=== PATIENT | female | born 1960 | race Caucasian/White ===

== ENCOUNTER 2018-10-10 09:15 | Inpatient (IN) | payer OTHER ==
[2018-10-10] MEDS ORDERED: fentaNYL 100 MCG/2 ML INJ IVP ONE (09:22)
[2018-10-10] MEDS ORDERED: diphenhydrAMINE 25 MG CAP PO ONE (09:22)
[2018-10-10] MEDS ORDERED: NS 500 ML IV ONE (09:22)
[2018-10-10] MEDS ORDERED: FAMOTIDINE 20 MG TAB PO ONE (09:22)
[2018-10-10] MEDS ORDERED: DIAZEPAM 5 MG TAB PO ONE (09:22)
[2018-10-10] MEDS ORDERED: ASPIRIN EC 325 MG TAB PO ONE (09:22)
[2018-10-10] MEDS ORDERED: BENZOCAINE UNIT DOSE SPRAY HURRICAINE MM ONE (09:22)
[2018-10-10] MEDS ORDERED: MIDAZOLAM 2 MG/2 ML VIAL IVP ONE (09:22)
[2018-10-10] MEDS ORDERED: NS 1,000 ML IV ONE (09:22)
[2018-10-10] MEDS ORDERED: fentaNYL 100 MCG/2 ML INJ ONE (10:17)
[2018-10-10] MEDS ORDERED: LIDOCAINE 1% 300 MG/30 ML SDV ONE (10:17)
[2018-10-10] MEDS ORDERED: MIDAZOLAM 2 MG/2 ML VIAL ONE ×2 (10:17→10:18)
[2018-10-10] MEDS ORDERED: HEPARIN 10,000 UNIT/10 ML MDV (1,000 UNIT/ML) ONE (10:18)
[2018-10-10] MEDS ORDERED: IOPAMIDOL (ISOVUE-370) 150 ML BTL IV ONE (10:18)
[2018-10-10] MEDS ORDERED: VERAPAMIL 5 MG/2 ML VIAL ONE (10:18)
[2018-10-10 10:21] LABS: INR 1.08 (0.83-1.16); PROTIME(PATIENT) 14.2 SEC (12.0-15.0)
[2018-10-10 10:29] LABS: PLATELET COUNT 244 10^3/uL (150-400)
--- NOTE | 2018-10-10 10:30 | PDHPUP ---
History & Physical Update H&P update statement: This history and physical update is based on an assessment of the patient which was completed after admission or registration (within 24 hours), but prior to the surgery/procedure. H&P update: H&P reviewed & patient examined, no change in patient's condition since H&P completed
--- NOTE | 2018-10-10 10:30 | PDPROPOC ---
Sedation Plan of Care Sedation Plan of Care: vital signs stable, mental status noted, patient educated of risks, benefits, alternatives, patient can tolerate sedation ASA Classification: ASA 2 Planned drugs: fentanyl, midazolam Mallampati Score: Class 1 Mallampati Reference Image: Patient passed 3-3-2 rule?: Yes
--- NOTE | 2018-10-10 13:21 | PDDXCAT ---
Diagnostic Cath Note - . Date: 10/10/18 Business Development Coordinator: Chuy Indication: other (Preop mitral valve replacement) - Procedure Access: right wrist Procedure: left heart catheterization, coronary angiography, left ventriculogram - Materials Left Heart Cath size: 5F Left Heart Cath materials: pigtail, other ([place] 4) Right Heart Cath size: 5F Right Heart Cath materials: PWP catheter - Findings-Left Heart Catheterization LM: Unobstructed LAD: Unobstructed LCX: Dominant: Unobstructed RCA: Unobstructed EDP: 10 mm of mercury LVEF: 64 Wall motion: Normal - Findings-Right Heart Catheterization RA: 10 mm of mercury RV: 52/10 PA: 52/30 PAOP: 30: Simultaneous left ventricular end-diastolic pressure wedge gradient of 25 mm of mercury Complications: None Estimated blood loss: <50ml Closure method: TR Band Assessment: Severe mitral stenosis. Angiographically normal coronary arteries. Normal LV systolic function Plan: Surgical evaluation and treatment.
[2018-10-10] MEDS ORDERED: ACETAMINOPHEN 325 MG TAB PO PRN (13:45)
[2018-10-10] MEDS ORDERED: HYDROCODONE/APAP 5/325 TAB PO PRN (13:45)
[2018-10-10] MEDS ORDERED: TEMAZEPAM 15 MG CAP PO PRN (13:46)
--- NOTE | 2018-10-10 13:54 | PDGENHP ---
History and Physical - Chief Complaint severe MS/TR - History of Present Illness 57F last seen in clinic on 06/06/18 for surgical evaluation of severe MS, severe TR, and severe pulmonary hypertension, admitted today in advance of OHS for risk stratification. Pt currently without complaints. She denies weakness, pre- syncope, syncope, CP, palpitations, SOB, PND, orthopnea, or LE edema. Pt with childhood h/o OHS which was possibly a MV repair through a left thoracotomy although she is unsure of the details. History Information - Allergies/Home Medication List Allergies/Adverse Reactions: No Known Allergies Allergy (Verified 10/03/18 10:23) Home Medications: Aspirin [Aspirin 81mg (*)] 81 mg PO DAILY 10/03/18 [Last Taken 09/26/18] Multivitamins [Multivitamin (*)] 1 each PO DAILY 10/03/18 [Last Taken 09/26/18] Pravastatin Sodium 20 mg PO DAILY 10/10/18 [Last Taken 09/26/18] I have personally reviewed and updated: medical history, social history, surgical history - Past Medical History hyperlipidemia - Surgical History Additional surgical history: as per HPI - Family History Positive for: non-pertinent - Social History Smoking Status: Former smoker Review of Systems Review of Systems: ROS: 10pt was reviewed & negative except for what was stated in HPI & below Physical Exam Physical Exam: Constitutional: no apparent distress, appears nourished, not in pain Eyes: anicteric sclera Ears, Nose, Mouth, Throat: hearing normal, no oral mucosal ulcers Cardiovascular: regular rate and rhythym, systolic murmur Respiratory: no respiratory distress, no rales or rhonchi, clear to auscultation Gastrointestinal: soft, non-tender abdomen Skin: warm, normal color, other (well-healed incision left, under breast ) Musculoskeletal: full muscle strength Neurologic: AAOx3 Psychiatric: interacting appropriately, not anxious, not encephalopathic, thought process linear Lab Data & Imaging Review 10/10/18 09:10 10/10/18 09:40 WBC 5.54 10^3/uL (3.80-9.50) 10/10/18 09:10 RBC 4.62 10^6/uL (4.18-5.33) 10/10/18 09:10 Hgb 14.1 g/dL (12.6-16.3) 10/10/18 09:10 Hct 41.3 % (38.0-47.0) 10/10/18 09:10 MCV 89.4 fL (81.5-99.8) 10/10/18 09:10 MCH 30.5 pg (27.9-34.1) 10/10/18 09:10 MCHC 34.1 g/dL (32.4-36.7) 10/10/18 09:10 RDW 12.9 % (11.5-15.2) 10/10/18 09:10 Plt Count 244 10^3/uL (150-400) 10/10/18 09:10 MPV 11.0 fL (8.7-11.7) 10/10/18 09:10 Neut % (Auto) 51.8 % (39.3-74.2) 10/10/18 09:10 Lymph % (Auto) 33.8 % (15.0-45.0) 10/10/18 09:10 [place] % (Auto) 9.7 % (4.5-13.0) 10/10/18 09:10 Eos % (Auto) 3.4 % (0.6-7.6) 10/10/18 09:10 Baso % (Auto) 0.9 % (0.3-1.7) 10/10/18 09:10 Nucleat RBC Rel Count 0.0 % (0.0-0.2) 10/10/18 09:10 Absolute Neuts (auto) 2.87 10^3/uL (1.70-6.50) 10/10/18 09:10 Absolute Lymphs (auto) 1.87 10^3/uL (1.00-3.00) 10/10/18 09:10 Absolute Monos (auto) 0.54 10^3/uL (0.30-0.80) 10/10/18 09:10 Absolute Eos (auto) 0.19 10^3/uL (0.03-0.40) 10/10/18 09:10 Absolute Basos (auto) 0.05 10^3/uL (0.02-0.10) 10/10/18 09:10 Absolute Nucleated RBC 0.00 10^3/uL (0-0.01) 10/10/18 09:10 Immature Gran % 0.4 % (0.0-1.1) 10/10/18 09:10 Immature Gran # 0.02 10^3/uL (0.00-0.10) 10/10/18 09:10 PT 14.2 SEC (12.0-15.0) 10/10/18 09:40 INR 1.08 (0.83-1.16) 10/10/18 09:40 Sodium 140 mEq/L (135-145) 10/10/18 09:40 Potassium 4.8 mEq/L (3.5-5.2) 10/10/18 09:40 Chloride 111 mEq/L (97-110) H 10/10/18 09:40 Carbon Dioxide 21 mEq/l (22-31) L 10/10/18 09:40 Anion Gap 8 mEq/L (6-14) 10/10/18 09:40 BUN 11 mg/dL (7-23) 10/10/18 09:40 Creatinine 0.6 mg/dL (0.6-1.0) 10/10/18 09:40 Estimated GFR > 60 10/10/18 09:40 Glucose 105 mg/dL (70-100) H 10/10/18 09:40 Hemoglobin A1c 5.8 % (4.0-6.0) 10/10/18 09:40 Estim Average Glucose 120 mg/dL (68-126) 10/10/18 09:40 Calcium 9.7 mg/dL (8.5-10.4) 10/10/18 09:40 Magnesium 2.2 mg/dL (1.6-2.3) 10/10/18 09:40 Triglycerides 155 mg/dL (35-135) H 10/10/18 09:40 Cholesterol 280 mg/dL (140-220) H 10/10/18 09:40 Cholesterol Risk Factr 1.4 (0.2-1.0) H 10/10/18 09:40 LDL Cholesterol, Calc 194 mg/dL (80-100) H 10/10/18 09:40 LDL Risk Factor 1.2 (0.2-1.0) H 10/10/18 09:40 VLDL Cholesterol 31 mg/dL (8-25) H 10/10/18 09:40 Non-HDL Cholesterol 225 mg/dL (90-129) H 10/10/18 09:40 HDL Cholesterol 55 mg/dL (40-85) 10/10/18 09:40 LDL/HDL Ratio 3.53 RATIO (1.00-3.22) H 10/10/18 09:40 Cholesterol/HDL Ratio 5.09 RATIO (1.00-4.44) H 10/10/18 09:40 Patient ABO/Rh O POSITIVE 10/10/18 09:40 Antibody Screen NEGATIVE 10/10/18 09:40 Imaging Review: CXR, carotids, C pending Assessment & Plan Assessment: 1. Severe MS 2. Severe TR 3. r/o CAD Plan: 1. Mitral valve repair vs replacement 2. Tricuspid valve repair vs replacement 3. Await [facility] results
--- NOTE | 2018-10-10 14:42 | PDMN ---
Medical Necessity Medical necessity: Pt meets inpt criteria per MD order and [facility] S-290, Cardiac Valve Replacement or Repair, 5 days, IP only list. 57 y/o w/severe MS, TR, and severe pulm HTN admitted for LHC/risk stratification prior to OHS: mitral valve repair vs replacement and tricuspid valve repair vs replacement.
[2018-10-10] MEDS ORDERED: CHLORHEXIDINE GLUC HIBICLENS 118 ML BTL TP SCH (21:00)
[2018-10-11] MEDS ORDERED: niCARdipine/NACL 200 ML IV ONE (06:00)
[2018-10-11] MEDS ORDERED: AMINOCAPROIC ACID 5 GM/20 ML VIAL IV ONE (06:00)
[2018-10-11] MEDS ORDERED: CITRATE DEXTROSE SOLN 500 ML BAG MISC ONE (06:00)
[2018-10-11] MEDS ORDERED: NOREPINEPHRINE BITARTRATE 16 MG in NS 250 ML IV ONE (06:00)
[2018-10-11] MEDS ORDERED: INSULIN REGULAR HUMAN 100 UNIT in NS 100 ML IV ONE (06:00)
[2018-10-11] MEDS ORDERED: MUPIROCIN 2% 22 GM OINT NS ONE (06:00)
[2018-10-11] MEDS ORDERED: MANNITOL 25% 12.5 GM/50 ML VIAL IVP ONE (06:00)
[2018-10-11] MEDS ORDERED: ceFAZolin 2 GM/DEXTROSE 100 ML IV ONE (06:00)
[2018-10-11] MEDS ORDERED: CARDIOPLEGIC SOLUTION 1,052.8 ML PF ONE (06:00)
[2018-10-11] MEDS ORDERED: PHENYLEPHRINE HCL 50 MG in NS 250 ML IV ONE (06:00)
[2018-10-11] MEDS ORDERED: PROTAMINE SULFATE 50 MG/5 ML VIAL IVP ONE (06:25)
[2018-10-11] MEDS ORDERED: MILRINONE/DEXTROSE/100 ML BAG IV ONE (06:25)
[2018-10-11] MEDS ORDERED: CALCIUM CHLORIDE 1 GM/10 ML INJ ONE ×3 (06:25→06:28)
[2018-10-11] MEDS ORDERED: AMIODARONE HCL 150 MG/3 ML VIAL ONE ×2 (06:26→06:29)
[2018-10-11] MEDS ORDERED: DOPamine/DEXTROSE 400 MG/250 ML BAG IV ONE ×2 (06:26→19:14)
[2018-10-11] MEDS ORDERED: HEPARIN 10,000 UNIT/10 ML MDV (1,000 UNIT/ML) ONE ×2 (06:26→06:28)
[2018-10-11] MEDS ORDERED: NA BICARBONATE 50 MEQ/50 ML VIAL ONE (06:26)
[2018-10-11] MEDS ORDERED: niCARdipine/NACL/200 ML BAG IV ONE (06:26)
[2018-10-11] MEDS ORDERED: ceFAZolin 1 GM VIAL ONE (06:27)
[2018-10-11] MEDS ORDERED: ADENOSINE 6 MG/2 ML VIAL ONE (06:27)
[2018-10-11] MEDS ORDERED: NITROGLYCERIN/D5W 50 MG/250 ML BOTTLE IV ONE (06:27)
[2018-10-11] MEDS ORDERED: SODIUM BICARBONATE 50 MEQ/50 ML SYR ONE (06:27)
[2018-10-11] MEDS ORDERED: CITRATE DEXTROSE SOLN 500 ML BAG ONE (06:28)
[2018-10-11] MEDS ORDERED: ALBUMIN 5% 250 ML BOTTLE IV ONE ×2 (06:28→13:45)
[2018-10-11] MEDS ORDERED: LIDOCAINE 2% 100 MG/5 ML SYR ONE ×2 (06:28→10:17)
[2018-10-11] MEDS ORDERED: MAGNESIUM SULFATE 1 GM/2 ML VIAL ONE (06:29)
[2018-10-11] MEDS ORDERED: methylPREDNISolone SOD SUCC 1 GM/8 ML VIAL ONE (06:29)
[2018-10-11] MEDS ORDERED: LR 1,000 ML IV ONE (07:37)
[2018-10-11] MEDS ORDERED: MIDAZOLAM 2 MG/2 ML VIAL IVP ONE (09:54)
--- NOTE | 2018-10-11 09:58 | PDANEPAE ---
ANE History of Present Illness MVReplacement and TVRepair for severe MS ANE Past Medical History - Cardiovascular History Hx Hypertension: No Hx Arrhythmias: No Hx Chest Pain: No Hx Coronary Artery / Peripheral Vascular Disease: No Hx CHF / Valvular Disease: Yes Hx Palpitations: No Cardiovascular History Comment: severe MS and severe TR - Pulmonary History Hx COPD: No Hx Asthma/Reactive Airway Disease: No Hx Recent Upper Respiratory Infection: No Hx Oxygen in Use at Home: No Hx Sleep Apnea: No Sleep Apnea Screening Result - Last Documented: Negative - Neurologic History Hx Cerebrovascular Accident: No Hx Seizures: No Hx Dementia: No - Endocrine History Hx Diabetes: No - Renal History Hx Renal Disorders: No - Liver History Hx Hepatic Disorders: No - Neurological & Psychiatric Hx Hx Neurological and Psychiatric Disorders: No - Cancer History Hx Cancer: No - Congenital Disorder History Hx Congenital Disorders: No - GI History Hx Gastrointestinal Disorders: No - Other Health History Other Health History: dental implants - Chronic Pain History Chronic Pain: No - Surgical History Prior Surgeries: none ANE Review of Systems Review of Systems: - Exercise capacity Exercise capacity: >=4 METS ANE Patient History - Allergies Allergies/Adverse Reactions: No Known Allergies Allergy (Verified 10/03/18 10:23) - Home Medications Home medications: home medication list seen and reviewed Home Medications: Aspirin [Aspirin 81mg (*)] 81 mg PO DAILY 10/03/18 [Last Taken 09/26/18] Multivitamins [Multivitamin (*)] 1 each PO DAILY 10/03/18 [Last Taken 09/26/18] Pravastatin Sodium 20 mg PO DAILY 10/10/18 [Last Taken 09/26/18] - NPO status NPO Status: no food or drink >8 hours NPO Since - Liquids (Date): 10/10/18 NPO Since - Liquids (Time): 23:59 NPO Since - Solids (Date): 10/10/18 NPO Since - Solids (Time): 23:59 - Anes Hx Anes Hx: no prior problems - Smoking Hx Smoking Status: Former smoker - Alcohol Use Alcohol Use: None - Family Anes Hx Family Anes Hx: none Family Hx Anesthesia Complications: none ANE Labs/Vital Signs - Labs Result Diagrams: 10/10/18 09:10 10/10/18 09:40 - Vital Signs Blood Pressure: 116/63 Heart Rate: 62 Respiratory Rate: 10 O2 Sat (%): 98 Height: 154.94 cm Weight: 61.235 kg ANE Physical Exam - Airway Mallampati Score: Class 2 Mouth exam: poor dentition - Pulmonary Pulmonary: no respiratory distress - Cardiovascular Cardiovascular: regular rate and rhythym - ASA Status ASA Status: II ANE Anesthesia Plan Anesthesia Plan: general endotracheal anesthesia Lines/Monitors: arterial line, central line, MAYRA
[2018-10-11] MEDS ORDERED: DEXMEDETOMIDINE HCL 400 MCG in NS 100 ML IV SCH (10:00)
[2018-10-11] MEDS ORDERED: fentaNYL 250 MCG/5 ML INJ ONE (10:13)
[2018-10-11] MEDS ORDERED: PROPOFOL/EMULSION 500 MG/50 ML BOTTLE IV ONE (10:13)
[2018-10-11] MEDS ORDERED: REMIFENTANIL HCL 1 MG VIAL ONE (10:13)
[2018-10-11] MEDS ORDERED: MIDAZOLAM 2 MG/2 ML VIAL ONE (10:13)
[2018-10-11] MEDS ORDERED: ROCURONIUM 100 MG/10 ML VIAL ONE (10:16)
[2018-10-11] MEDS ORDERED: ONDANSETRON 4 MG/2 ML VIAL ONE (10:16)
[2018-10-11] MEDS ORDERED: DEXAMETHASONE 4 MG/ML VIAL ONE ×2 (10:16)
[2018-10-11] MEDS ORDERED: PHENYLEPHRINE HCL 100 MCG/ML SYR ONE (10:35)
--- NOTE | 2018-10-11 11:17 | CPEKG ---
Test Reason : OPEN Blood Pressure : / mmHG Vent. Rate : 058 BPM Atrial Rate : 057 BPM P-R Int : 164 ms QRS Dur : 085 ms QT Int : 428 ms P-R-T Axes : 017 070 020 degrees QTc Int : 421 ms Sinus rhythm Atrial premature complex Low voltage, precordial leads Confirmed by Papi Schmidt ([id number]) on 10/11/2018 11:16:55 AM Referred By: Confirmed By:Papi Schmidt
[2018-10-11] MEDS ORDERED: MINERAL OIL 10 ML VIAL ONE (13:33)
[2018-10-11] MEDS ORDERED: SUGAMMADEX SODIUM 200 MG/2 ML VIAL IVP ONE (13:34)
[2018-10-11] MEDS ORDERED: BISACODYL 10 MG SUPP PR PRN (14:00)
[2018-10-11] MEDS ORDERED: SODIUM CL NASAL 45 ML BTL EACHNARE PRN (14:00)
[2018-10-11] MEDS ORDERED: ONDANSETRON DISINTEGRATING 4 MG TAB PO PRN (14:00)
[2018-10-11] MEDS ORDERED: MAGNESIUM HYDROXIDE 30 ML UDCUP PO PRN (14:00)
[2018-10-11] MEDS ORDERED: POLYETHYLENE GLYCOL 3350 17 GM PKT PO PRN (14:00)
[2018-10-11] MEDS ORDERED: CEPACOL LOZENGE PO PRN (14:00)
[2018-10-11] MEDS ORDERED: D50W 25 GM/50 ML SYR IVP PRN (14:00)
[2018-10-11] MEDS ORDERED: ACETAMINOPHEN 650 MG SUPP PR PRN (14:00)
[2018-10-11] MEDS ORDERED: LACTULOSE 20 GM/30 ML UDCUP PO PRN (14:00)
[2018-10-11] MEDS ORDERED: niCARdipine/NACL 200 ML IV SCH (14:00)
[2018-10-11] MEDS ORDERED: MEPERIDINE 25 MG/0.5 ML AMP IVP PRN (14:00)
[2018-10-11] MEDS ORDERED: PANTOPRAZOLE SODIUM 40 MG VIAL IVP ONE (14:00)
[2018-10-11] MEDS: KETOROLAC 15 MG/1 ML SDV IVP PRN ×2 (14:35→19:25)
--- NOTE | 2018-10-11 14:48 | ASMTCASEMG ---
Living Arrangements What is your living Answers: With Spouse arrangement? Who do you live with? Type Of Residence What kind of residence do Answers: House you live in? Discharge Plan Comments Coordination Status Comments Notes: Patient is a 57yo female who was admitted for mitral valve repair and tricuspid valve repair. PT/OT/Cardiac rehab have been ordered for the patient. Patient lives in [place]. D/C plan TBD. CM will follow. Date Signed: 10/11/2018 02:47 PM Electronically Signed By:Fiorella Worley LCSW
[2018-10-11] MEDS: INSULIN REGULAR HUMAN 100 UNIT in NS 100 ML IV SCH ×2 (14:58→15:34)
[2018-10-11] MEDS: NS 1,000 ML IV SCH (14:59)
[2018-10-11] MEDS: POTASSIUM Cl (KCl) 50 ML IV PRN ×2 (16:49→17:21)
[2018-10-11] MEDS: ALBUMIN 5% 250 ML IV PRN ×2 (17:01→17:40)
[2018-10-11] MEDS: ceFAZolin 2 GM/DEXTROSE 100 ML IV SCH (17:51)
[2018-10-11] MEDS: HYDROCODONE/APAP 5/325 TAB PO PRN (18:11)
[2018-10-11] MEDS: ONDANSETRON 4 MG/2 ML VIAL IVP PRN (19:25)
[2018-10-11] MEDS: fentaNYL 100 MCG/2 ML INJ IVP PRN ×2 (21:05→22:23)
[2018-10-11] MEDS: MUPIROCIN 2% 22 GM OINT NS SCH (21:10)
[2018-10-11] MEDS: SENNOSIDES/DOCUSATE SODIUM TAB PO SCH (21:11)
--- NOTE | 2018-10-11 21:25 | GOP ---
DATE OF OPERATION: 10/10/2018 SURGEON: Azam Us DO DEPUTY DIRECTOR OF FINANCE: Jacky Shin PA-C ANESTHESIOLOGIST: Frank Corbett MD. PREOPERATIVE DIAGNOSIS: 1. Severe mitral stenosis stent, status post previous open mitral commissurotomy. 2. Moderate mitral insufficiency with rheumatic heart disease. 3. Severe tricuspid insufficiency. POSTOPERATIVE DIAGNOSIS: 1. Severe mitral stenosis stent, status post previous open mitral commissurotomy. 2. Moderate mitral insufficiency with rheumatic heart disease. 3. Severe tricuspid insufficiency. PROCEDURE PERFORMED: 1. Reoperation mitral valve replacement with a #27 Magna bioprosthesis. 2. Tricuspid valve annuloplasty with a #26 ring. FINDINGS: Patient had a critical mitral stenosis, was referred for surgical intervention. DESCRIPTION OF PROCEDURE: She was consented, brought to the operating room, intubated. Monitoring li nguyen were placed. She was prepped and draped in sterile classical manner. Sternotomy was performed. Ma rsupialization of the right side of the heart was performed. She had dense adhesions from previous re operation. She was then heparinized, cannulated with bicaval cannulas. Bypass was begun. A cardiopleg ic arrest was obtained with antegrade cardioplegia utilizing [place] solution per protocol and topic al hypothermia, as well as systemic cooling. The left atrium was opened. It became evident that the left atrial appendage had been excised from th e previous operation and was non-existent. We then inspected the valve. It was a classic [place] mi tral valve from rheumatic heart disease. The anterior leaflet was removed and from the tara llary muscle heads. The posterior leaflet was left intact. She was sized for a 27 Magna valve, which was sutured in place with interrupted 2-0 Tycron pledgeted mattress sutures with Cor-knots securing. We then closed the left atrium in standard fashion. A vent was placed into the ventricle for air krishna za. Left atrium was closed. We then opened the right atrium to the right atrium. A retractor was placed. The valve was thickened and somewhat retracted and quite small. Annuloplasty sutures were placed. A 26 ring was secured. With distention of the ventricle, there was no regurgitation. The right atrium was then closed in standar d fashion. The cross-clamp was removed with suction on the ascending aortic vent and LV sump. No atte mpt to lift the heart for de-airing from the apex was performed due to adhesions and mitral valve rep lacement. When no further air was identified, she was weaned from bypass. Mitral valve function appea red to be well preserved, as well as biventricular function. Heparin was reversed with protamine. Cannula was removed and oversewn. Four pacing wires, 1 right ple ural and 1 mediastinal drain were placed. The thymic fat and pericardium were closed. Chest was close d in standard fashion. Patient was returned to ICU in stable condition. /[id number]/MODL
[2018-10-11] MEDS: METOCLOPRAMIDE 10 MG/2 ML VIAL IVP PRN (23:07)
[2018-10-12] MEDS: HYDROCODONE/APAP 5/325 TAB PO PRN ×4 (00:13→22:29)
[2018-10-12] MEDS: fentaNYL 100 MCG/2 ML INJ IVP PRN (00:15)
[2018-10-12] MEDS: KETOROLAC 15 MG/1 ML SDV IVP PRN ×3 (01:00→18:26)
[2018-10-12] MEDS: ceFAZolin 2 GM/DEXTROSE 100 ML IV SCH ×3 (02:04→18:22)
[2018-10-12 05:28] LABS: PLATELET COUNT 126 10^3/uL (150-400)
[2018-10-12] MEDS: HEPARIN 5,000 UNIT/0.5 ML INJ SC SCH ×3 (06:43→22:29)
[2018-10-12] MEDS: ONDANSETRON 4 MG/2 ML VIAL IVP PRN ×3 (07:21→19:06)
--- NOTE | 2018-10-12 07:36 | SOAPPROG ---
SORITA Progress Note Assessment/Plan: POD #1: Reoperation MV replacement with #27 Magna bioprosthesis, TV annuloplasty with #26 MC3 ring Severe MS. moderate MR, and severe TR secondary to rheumatic heart disease with h/o MV commissurotomy via left thoracotomy in early 20s s/p MV replacement and TV repair - AL/FC out, CTs to bulb suction - Coumadin for thromboprophylaxis, INR goal 2-3, duration 3 months with adjunctive baby ASA - BB for AF prophylaxis when appropriate - Possible transfer to PCU later today Acute post-op blood loss anemia - Stable without the need for blood transfusions Post-op JR in 40s - Continue a-pacing for optimized HD DVT prophylaxis - SCDs, heparin SQ Subjective: Pain well-controlled. Denies SOB. Objective: Vital Signs Temp Pulse Resp BP Pulse Ox 36.5 C 80 20 121/53 H 96 10/11/18 20:00 10/12/18 07:00 10/12/18 07:00 10/12/18 07:00 10/12/18 07:00 Laboratory Results 10/12/18 05:00 10/12/18 05:00 10/11/18 10/12/18 10/13/18 05:59 05:59 05:59 Intake Total 1490 1686 Output Total 450 2770 95 Balance 1040 -1084 -95 PT 14.2 SEC (12.0-15.0) 10/10/18 09:40 INR 1.08 (0.83-1.16) 10/10/18 09:40 Physical Exam - Physical Exam General Appearance: WD/WN, alert, no apparent distress EENT: No scleral icterus (R), No scleral icterus (L) Neck: normal inspection Respiratory: No respiratory distress Cardiac/Chest: other (JR) Abdomen: non-tender, soft, No distended Skin: normal color, warm/dry Extremities: other (hand edema ), No pedal edema Neuro/Psych: no motor/sensory deficits, alert, normal mood/affect, oriented x 3 ICD10 Worksheet Patient Problems: Problems Problem Status Onset Acute blood loss anemia Acute H/O heart surgery Acute Mitral stenosis Acute 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
[2018-10-12] MEDS: PANTOPRAZOLE SODIUM 40 MG TAB PO SCH (08:59)
[2018-10-12] MEDS: ASPIRIN 81 MG CHEWABLE TAB PO SCH (08:59)
[2018-10-12] MEDS: SENNOSIDES/DOCUSATE SODIUM TAB PO SCH ×2 (08:59→21:38)
[2018-10-12] MEDS: MUPIROCIN 2% 22 GM OINT NS SCH ×2 (09:00→21:37)
[2018-10-12] MEDS: METOCLOPRAMIDE 10 MG/2 ML VIAL IVP PRN ×2 (09:26→19:06)
[2018-10-12] MEDS: NS 1,000 ML IV SCH (21:29)
[2018-10-13] MEDS: ceFAZolin 2 GM/DEXTROSE 100 ML IV SCH (02:00)
[2018-10-13 04:52] LABS: INR 1.22 (0.83-1.16); PROTIME(PATIENT) 15.6 SEC (12.0-15.0)
[2018-10-13] MEDS: HYDROCODONE/APAP 5/325 TAB PO PRN (05:39)
[2018-10-13] MEDS: HEPARIN 5,000 UNIT/0.5 ML INJ SC SCH ×3 (06:19→23:06)
--- NOTE | 2018-10-13 07:48 | SOAPPROG ---
SOAP Progress Note Assessment/Plan: Assessment: POD#2 Redo MVR#27 Magna bioprosthesis, TVA#26 MC3 ring RHD with recurrent severe MS s/p remote commissurotomy - Valve replaced with a bioprosthesis. Postop course notable for sinus node dysfx and robust early postop autodiuresis necessitating IVF. Cr remains stable. Antithrombotic prophylaxis with Coumadin, target INR 2-3, duration 3 months. Adjunctive baby ASA until INR stable in therapeutic range. AF prophylaxis with BB, as allowed by HR/rhythm. Secondary TR - Management as per MV. Post-op junctional rhythm - Rates in the 40s early postop and Apaced for optimized hemodynamics. Improved HRs yest with intermittent recovery of sinus fx and stable SBPs. No backup pacing triggered. Bursts of AF noted this am. Consider amio if inc frequency. Acute expected blood loss anemia - Stable. No blood transfusions needed. VTE prophylaxis with SCDs, coumadin and SQ hep until INR > 1.8. Postoperative nausea - Assoc with narc analgesia. Transition to multimodal therapy in progress. IVF prn poor oral intake. Plan: Remove ant mediastinal drain. Keep pacer backup capacity. Optimize analgesia. Mobilize. Start coumadin. 2.5 mg today. Tx to PCU. 10/13/18 07:40 Subjective: Tube pain. Sensitive to narcs and couple episodes of emesis. No sustained nausea. Abd soft, NT. Objective: Vital Signs Temp Pulse Resp BP Pulse Ox 36.9 C 52 L 16 136/67 H 99 10/12/18 08:00 10/13/18 06:00 10/13/18 06:00 10/13/18 06:00 10/13/18 06:00 Laboratory Results 10/13/18 04:30 10/13/18 04:30 10/12/18 10/13/18 10/14/18 05:59 05:59 05:59 Intake Total 1686 1881 Output Total 2770 740 Balance -1084 1141 PT 15.6 SEC (12.0-15.0) H 10/13/18 04:30 INR 1.22 (0.83-1.16) H 10/13/18 04:30 HR 50s overnoc, junct/SB. Bursts of AF this am. SBPs > 120 with normalizing fluid balance and stable Cr. Borderline suppl O2 req. CXR-> hypovent, bibasilar atelectasis, min pulm vasc congestion, no undrained effusions. CTOP approaching removal criteria. Physical Exam - Physical Exam General Appearance: alert, no apparent distress Respiratory: decreased breath sounds (bases), other (blakes x 2 to bulb suction , serosang drainage. Ant med drain removed without incident.) Cardiac/Chest: regular rate, rhythm, other (Sternotomy CDI. A&V wires intact.) Abdomen: normal bowel sounds, non-tender, soft Skin: warm/dry Extremities: swelling (trace) ICD10 Worksheet Patient Problems: Problems Problem Status Onset Acute blood loss anemia Acute H/O heart surgery Acute Mitral stenosis Acute 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
[2018-10-13] MEDS: SENNOSIDES/DOCUSATE SODIUM TAB PO SCH ×2 (08:41→23:05)
[2018-10-13] MEDS: PANTOPRAZOLE SODIUM 40 MG TAB PO SCH (08:41)
[2018-10-13] MEDS: ASPIRIN 81 MG CHEWABLE TAB PO SCH (08:41)
[2018-10-13] MEDS: KETOROLAC 15 MG/1 ML SDV IVP PRN (08:49)
[2018-10-13] MEDS: MUPIROCIN 2% 22 GM OINT NS SCH (09:00)
[2018-10-13] MEDS ORDERED: traMADol 50 MG TAB PO PRN (10:00)
[2018-10-13] MEDS: ACETAMINOPHEN 325 MG TAB PO SCH ×3 (13:02→23:04)
[2018-10-13] MEDS: oxyCODONE IR 5 MG TAB PO PRN ×2 (14:32→23:04)
[2018-10-13] MEDS ORDERED: WARFARIN SODIUM 2.5 MG TAB PO ONE (16:00)
[2018-10-13] MEDS: KETOROLAC 15 MG/1 ML SDV IVP SCH ×3 (16:59→23:43)
[2018-10-14] MEDS: ACETAMINOPHEN 325 MG TAB PO SCH ×4 (05:04→23:29)
[2018-10-14] MEDS: KETOROLAC 15 MG/1 ML SDV IVP SCH ×4 (05:05→23:27)
[2018-10-14] MEDS: oxyCODONE IR 5 MG TAB PO PRN ×3 (05:05→23:28)
[2018-10-14] MEDS: HEPARIN 5,000 UNIT/0.5 ML INJ SC SCH ×3 (05:06→23:27)
[2018-10-14 05:21] LABS: INR 1.32 (0.83-1.16); PROTIME(PATIENT) 16.6 SEC (12.0-15.0)
--- NOTE | 2018-10-14 09:04 | SOAPPROG ---
SOAP Progress Note Assessment/Plan: Assessment: POD#3 Redo MVR#27 Magna bioprosthesis, TVA#26 MC3 ring RHD with recurrent severe MS s/p remote commissurotomy - Valve replaced with a bioprosthesis. Postop course notable for sinus node dysfx and robust early postop autodiuresis necessitating IVF. Cr remains stable. Antithrombotic prophylaxis with Coumadin, target INR 2-3, duration 3 months. Adjunctive baby ASA until INR stable in therapeutic range. AF prophylaxis with BB, as allowed by HR/rhythm. Secondary TR - Management as per MV. Post-op junctional rhythm - Rates in the 40s early postop and Apaced for optimized hemodynamics. Stable SBPs. No backup pacing triggered. BB held. HR elevated to 60's with activity. Acute expected blood loss anemia - Stable. No blood transfusions needed. VTE prophylaxis with SCDs, coumadin and SQ hep until INR > 1.8. INR 1.32 from 1.22 yesterday. Postoperative nausea - Assoc with narc analgesia. Transition to multimodal therapy in progress. IVF prn poor oral intake. Plan: Keep right pleural tube in given output, likely out tomorrow Keep pacer backup VVI 40, wires in place Coumadin 2.5 mg today, daily INRs Home pravastatin ordered for tomorrow TTEcho Tuesday Subjective: No complaints Objective: Vital Signs Temp Pulse Resp BP Pulse Ox 36.8 C 49 L 16 114/82 H 96 10/14/18 07:44 10/14/18 07:44 10/14/18 07:44 10/14/18 07:44 10/14/18 07:44 Laboratory Results 10/13/18 04:30 10/14/18 04:55 10/13/18 10/14/18 10/15/18 05:59 05:59 05:59 Intake Total 1881 933 375 Output Total 740 1250 500 Balance 1141 -317 -125 PT 16.6 SEC (12.0-15.0) H 10/14/18 04:55 INR 1.32 (0.83-1.16) H 10/14/18 04:55 General: NAD, NCAT HEENT: CVL IJ, MMM Respiratory: nasal cannula oxygen at 1 L, no wheezes, crackles Cardiac: JR 40-50's, no m/r/g, no edema GI: soft, nt, nd Extremities: warm Incisions: sternum - CDI Chest tubes: 140/60/100 ICD10 Worksheet Patient Problems: Problems Problem Status Onset Acute blood loss anemia Acute H/O heart surgery Acute Mitral stenosis Acute 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
[2018-10-14] MEDS: SENNOSIDES/DOCUSATE SODIUM TAB PO SCH ×2 (11:06→21:40)
[2018-10-14] MEDS: ASPIRIN 81 MG CHEWABLE TAB PO SCH (11:06)
[2018-10-14] MEDS: PANTOPRAZOLE SODIUM 40 MG TAB PO SCH (11:06)
[2018-10-14] MEDS ORDERED: WARFARIN SODIUM 2.5 MG TAB PO ONE (16:00)
--- NOTE | 2018-10-14 17:57 | ASMTCMCOM ---
CM Note CM Note Notes: Reviewed chart regarding discharge plan of care, pt's progress. Pt is s/p an MVR, tricuspid valve repair. PT recommends home with HHC and a four wheel walker. OT cleared pt for discharge. Pt to follow up with cardiac rehab as an outpt. No HHC referrals sent per Abeba's preference. Pt is and lives with his spouse. Anticipate pt will likely discharge home independently with family support and outpt rehab, when medically stable. CM will continue to follow. Discharge Plan: Home independently with family support and cardiac rehab Date Signed: 10/14/2018 05:56 PM Electronically Signed By:Janette Jeter RN
[2018-10-15 05:48] LABS: INR 2.11 (0.83-1.16); PROTIME(PATIENT) 23.7 SEC (12.0-15.0)
[2018-10-15] MEDS: KETOROLAC 15 MG/1 ML SDV IVP SCH ×2 (05:59→12:38)
[2018-10-15] MEDS: HEPARIN 5,000 UNIT/0.5 ML INJ SC SCH (05:59)
[2018-10-15] MEDS: ACETAMINOPHEN 325 MG TAB PO SCH ×3 (09:14→16:56)
[2018-10-15] MEDS: MULTIVITAMINS 1 EACH TAB PO SCH (09:15)
[2018-10-15] MEDS: PANTOPRAZOLE SODIUM 40 MG TAB PO SCH (09:15)
[2018-10-15] MEDS: ASPIRIN 81 MG CHEWABLE TAB PO SCH (09:15)
[2018-10-15] MEDS: SENNOSIDES/DOCUSATE SODIUM TAB PO SCH ×2 (09:15→21:58)
--- NOTE | 2018-10-15 09:41 | SOAPPROG ---
SOAP Progress Note Assessment/Plan: Assessment: POD#4 Redo MVR#27 Magna bioprosthesis, TVA#26 MC3 ring RHD with recurrent severe MS s/p remote commissurotomy - Valve replaced with a bioprosthesis. Postop course notable for sinus node dysfx and robust early postop autodiuresis necessitating IVF. Cr remains stable. Antithrombotic prophylaxis with Coumadin, target INR 2-3, duration 3 months, currently therapeutic at 2.11. Unable to start BB for AF prophylaxis given patient's JR. Secondary TR - Management as per MV. Post-op junctional rhythm - Rates in the 40s early postop and Apaced for optimized hemodynamics. Stable SBPs. No backup pacing triggered. BB held. HR elevated to 60's with activity. Acute expected blood loss anemia - Stable. No blood transfusions needed. VTE prophylaxis with SCDs, coumadin. Postoperative nausea - Assoc with narc analgesia. Plan: Right pleural tube continues to drain, likely out tomorrow Cut TCPW today Stop SQ heparin Coumadin 2 mg today, daily INRs TTEcho Tuesday Anticipate home tomorrow without services Subjective: No complaints. Objective: Vital Signs Temp Pulse Resp BP Pulse Ox 37.1 C 52 L 16 97/48 L 90 L 10/15/18 07:31 10/15/18 07:31 10/15/18 07:31 10/15/18 07:31 10/15/18 07:31 Laboratory Results 10/13/18 04:30 10/14/18 04:55 10/14/18 10/15/18 10/16/18 05:59 05:59 05:59 Intake Total 933 615 Output Total 1250 1260 80 Balance -317 -645 -80 PT 23.7 SEC (12.0-15.0) H 10/15/18 05:25 INR 2.11 (0.83-1.16) H 10/15/18 05:25 General: NAD, NCAT HEENT: CVL IJ, MMM Respiratory: 90% RA, no wheezes, crackles Cardiac: JR 40-50's, no m/r/g, no edema GI: soft, nt, nd Extremities: warm Incisions: sternum - CDI Chest tubes: 200 cc overnight, 80 cc this AM ICD10 Worksheet Patient Problems: Problems Problem Status Onset Acute blood loss anemia Acute H/O heart surgery Acute Mitral stenosis Acute 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
[2018-10-15] MEDS ORDERED: WARFARIN SODIUM 2 MG TAB PO ONE (16:00)
[2018-10-15] MEDS: oxyCODONE IR 5 MG TAB PO PRN (21:57)
[2018-10-16] MEDS: ACETAMINOPHEN 325 MG TAB PO SCH ×3 (00:41→12:18)
[2018-10-16] MEDS: ASPIRIN 81 MG CHEWABLE TAB PO SCH (07:45)
[2018-10-16] MEDS: MULTIVITAMINS 1 EACH TAB PO SCH (07:46)
[2018-10-16] MEDS: SENNOSIDES/DOCUSATE SODIUM TAB PO SCH (07:46)
[2018-10-16] MEDS: PANTOPRAZOLE SODIUM 40 MG TAB PO SCH (07:47)
[2018-10-16] MEDS: oxyCODONE IR 5 MG TAB PO PRN (08:01)
--- NOTE | 2018-10-16 08:05 | SOAPPROG ---
SOAP Progress Note Assessment/Plan: Assessment: POD#5 Redo MVR#27 Magna bioprosthesis, TVA#26 MC3 ring RHD with recurrent severe MS s/p remote commissurotomy - Valve replaced with a bioprosthesis. Postop course notable for sinus node dysfx and robust early postop autodiuresis necessitating IVF. Cr remains stable. Antithrombotic prophylaxis with Coumadin, target INR 2-3, duration 3 months, currently therapeutic at 2.11 yesterday. INR pending for today. Unable to start BB for AF prophylaxis given patient's JR/SB. Secondary TR - Management as per MV. Post-op junctional rhythm - resolved, patient has P waves on rhythm strip today. Rates in the 40s early postop and Apaced for optimized hemodynamics. Stable SBPs. BB held. Acute expected blood loss anemia - Stable. No blood transfusions needed. VTE prophylaxis with SCDs, Coumadin. Postoperative nausea - Assoc with narc analgesia. Plan: Right pleural tube removed today INR pending TTEcho today Anticipate home today without services. Patient in agreement. Subjective: No complaints. P waves on tele (sinus richie in 50's) Objective: Vital Signs Temp Pulse Resp BP Pulse Ox 36.4 C 68 14 100/55 L 96 10/16/18 04:00 10/16/18 04:00 10/16/18 04:00 10/16/18 04:00 10/16/18 04:00 Laboratory Results 10/13/18 04:30 10/14/18 04:55 10/15/1818 10/17/18 05:59 05:59 05:59 Intake Total 615 1505 Output Total 1260 990 90 Balance -645 515 -90 PT 23.7 SEC (12.0-15.0) H 10/15/18 05:25 INR 2.11 (0.83-1.16) H 10/15/18 05:25 General: NAD, laying in bed HEENT: CVL IJ, MMM Respiratory: no wheezes, crackles Cardiac: SB, no m/r/g, no edema GI: soft, nt, nd Extremities: warm Incisions: sternum CDI ICD10 Worksheet Patient Problems: Problems Problem Status Onset Acute blood loss anemia Acute H/O heart surgery Acute Mitral stenosis Acute 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
[2018-10-16 08:12] LABS: INR 2.05 (0.83-1.16); PROTIME(PATIENT) 23.2 SEC (12.0-15.0)
[2018-10-16 08:15] VITALS: BP 108/62
[2018-10-16] MEDS ORDERED: PRAVASTATIN SODIUM 20 MG TAB PO SCH (09:00)
--- NOTE | 2018-10-16 09:25 | PDDCSUM ---
Discharge Summary Discharge Summary: DATE OF ADMISSION: 10/10/2018 DATE OF DISCHARGE: 10/16/2018 DISPOSITION: Home without services ACTIVITY: Instructed on sternal precautions, activity restrictions, and problems to call [facility]. ADMISSION DIAGNOSES: Severe mitral valve stenosis Severe tricuspid valve regurgitation Severe pulmonary hypertension Remote history of mitral commissurotomy, RAISA via left thoracotomy DISCHARGE DIAGNOSES: As above plus, Acute blood loss anemia Post-operative junctional rhythm/sinus bradycardia, asymptomatic PROCEDURES PERFORMED: 10/10/18 (Chuy) Left/right heart catheterization 10/11/18 (Abeba) Reoperation mitral valve replacement with # 27 Magna bioprosthesis. Tricuspid valve annuloplasty with #26 ring. 10/16/18 (White) Transthoracic echocardiogram HISTORY OF PRESENT ILLNESS: This is a 57F who presented for elective surgery for severe MS and severe TR. She denied weakness, presyncope, syncope, CP, palpitations, SOB, PND, orthopnea , or LE edema. Pt with childhood h/o OHS which was possibly a MV repair through a left thoracotomy although she is unsure of the details. HOSPITAL COURSE BY PROBLEM LIST: RHD with recurrent severe MS s/p remote commissurotomy and secondary TR - Postop course notable for sinus node dysfx and robust early postop autodiuresis necessitating IVF. Cr remained stable. Antithrombotic prophylaxis with Coumadin with target INR 2-3 for a duration 3 months. Therapeutic at discharge. Unable to start BB for AF prophylaxis given patient's JR/SB. Post-op junctional rhythm - Rates in the 40s early postop and a-paced for optimized hemodynamics. Stable SBPs. BB held. P-waves seen on day of discharge with heart rates in the 50s. She also had self-limiting bursts of atrial fibrillation that resolved without intervention. Acute expected blood loss anemia - Stable. No blood transfusions needed. Postoperative nausea - Assoc with narc analgesia. PERTINENT DISCHARGE CLINICAL INFORMATION: Sternotomy stable, CDI HR 55 BP 108/62 SpO2 94% RA pre-op wt 64.8 kg discharge wt 63.8 kg WBC 20 Hgb 10.6 HCT 31.9 Plt 133 Na 139 K 4.8 Cr 0.7 INR 2.05 CONSULTANTS: [facility] MEDICATIONS ON ADMISSION: Aspirin Multivitamin Parastatin 20 mg PO Daily ALLERGIES/SENSITIVITIES: NKDA DISCHARGE MEDICATIONS: CONTINUE these medications: Aspirin Multivitamin Pravastatin 20 mg PO Daily NEW medications: Tylenol PRN Tramadol 50-100 mg PO q6hrs PRN #30 Warfarin 2.5 mg PO daily for goal INR 2-3 x 3 months FOLLOW UP APPOINTMENTS: 1. CV surgery: with Dr. Us at [facility] on 10/27/18 @ 10:30 2. Cardiology: with Dr. Vera at [facility] within 4-6 weeks. Appointment to be established during surgical visit. 3. INR check: 10/19/18 9:30 [facility] FOLLOW UP TESTING: CXR prior to surgical appointment.
--- NOTE | 2018-10-16 10:35 | ECHO ---
[email or web address] [address] [address] Main: [phone] Fax: Transthoracic Echocardiogram Name: ETHAN KING MR#: [id number] Study Date: 10/16/2018 Study Time: 08:18 AM Date of : 1960 Age: 57 year(s) Height: 154.9 cm (61 in.) Weight: 61.24 kg (135 lb.) BSA: 1.6 m2 Gender: Female Examination: Echo Indication: Baseline postop echo/ s/p MVR#27 CE magna bioprosthesis/TVA#26 ring Image Quality: Contrast: Requested by: Lynn Guerrero BP: 108 mmHg/62 mmHg Heart Rate: Rhythm: Indication: Baseline postop echo/ s/p MVR#27 CE magna bioprosthesis/TVA#26 ring Procedure Staff Credit Risk Analyst: Raegan Du LEIGH ANN Reading Physician: Claus Blanc MD Requesting Provider: Conclusions: Normal size left ventricle. Normal global systolic LV function. The ejection fraction is estimated to be 55-60 %. No regional wall motion abnormality. The left atrium is mildly dilated. Trivial mitral valve regurgitation. A bioprothetic mitral valve is in place. MV mean PG is 2mmHG.. Trivial aortic valve regurgitation. Trivial tricuspid valve regurgitation. There is a tricuspid valve ring. Measurements: Chambers Valvular Assessment AV/MV Valvular Assessment TV/PV Normal Normal Normal Name Value Range Name Value Range Name Value Range Ao Vangie (MM): 2.7 cm (2.2 cm-3.7 AV Vmax: 1.59 m/s (1 m/s-1.7 cm) m/s) IVSd (2D): 0.6 cm (0.6 cm-1.1 AV maxP mmHg ( - ) cm) AV meanP mmHg ( - ) LVDd (2D): 5.0 cm (3.9 cm-5.3 MV E Vmax: 1.53 m/s ( - ) cm) MV A Vmax: 0.50 m/s ( - ) LVPWd (2D): 0.6 cm ( - ) MV E/A: 3.06 ( - ) EF Range: 55-60 % MV maxP mmHg ( - ) MV meanP mmHg ( - ) MV PHT: 0.110 s ( - ) MVA (PHT): 2.0 s ( - ) Continued Measurements: Patient: ETHAN KING Study Date: 10/16/2018 Page 1 of 2 08:18 AM Chambers Valvular Assessment AV/MV Name Value Name Value LADs: 4.2 cm MV VTI: 43.60 cm LADs Lon.9 cm LA Area: 19.4 cm2 Findings: Left Ventricle: Normal size left ventricle. No LV hypertrophy. Normal global systolic LV function. The ejection fraction is estimated to be 55-60 %. No regional wall motion abnormality. Normal diastolic LV function. Right Ventricle: Normal size right ventricle. Left Atrium: The left atrium is mildly dilated. Right Atrium: The right atrium is normal in size. Mitral Valve: Trivial mitral valve regurgitation. A bioprothetic mitral valve is in place. Trivial MV prosthesis regurgitation. MV mean PG is 2mmHG.. Aortic Valve: The aortic valve is normal in appearance and function. Trivial aortic valve regurgitation. Tricuspid Valve: Trivial tricuspid valve regurgitation. There is a tricuspid valve ring. Pulmonic Valve: The pulmonic valve is normal in appearance and function. Aorta: The aorta is normal. Pericardium: No pericardial effusion. (No Signature Object) Patient: ETHAN KING Study Date: 10/16/2018 Page 2 of 2 08:18 AM [id number]
[2018-10-16] MEDS ORDERED: WARFARIN SODIUM 2.5 MG TAB PO SCH (16:00)
--- NOTE | 2018-10-19 16:17 | POSTANESTH ---
Post Anesthetic Evaluation Cardiovascular Status: Normal, Stable Respiratory Status: Normal, Stable Level of Consciousness/Mental Status: Can Participate in Eval Pain Control: Adequate, Prn Tx Ordered Nausea/Vomiting Control: Adequate, Prn Tx Ordered Complications Possibly Related to Anesthesia: None Noted
== END 2018-10-16 13:19 | disposition home or self-care (01) | DRG 217 ==
LOC: FCATH 09:15 → F2W 12:18 → F2N 10-11 10:04 → F2W 10-13 14:05
PROVIDERS: ADMIT Thoracic Surgery (Cardiothoracic Vascular Surgery); ATTEND Thoracic Surgery (Cardiothoracic Vascular Surgery)
PROC: 4A023N8 Measurement of Cardiac Sampling and Pressure, Bilateral, Percutaneous Approach (ICD-10-PCS; 2018-10-10)
PROC: B2151ZZ Fluoroscopy of Left Heart using Low Osmolar Contrast (ICD-10-PCS; 2018-10-10)
PROC: B2111ZZ Fluoroscopy of Multiple Coronary Arteries using Low Osmolar Contrast (ICD-10-PCS; 2018-10-10)
PROC: 02UJ0JZ Supplement Tricuspid Valve with Synthetic Substitute, Open Approach (ICD-10-PCS; principal; 2018-10-11 08:30)
PROC: 02RG08Z Replacement of Mitral Valve with Zooplastic Tissue, Open Approach (ICD-10-PCS; principal; 2018-10-11 08:30)
PROC: 5A1221Z Performance of Cardiac Output, Continuous (ICD-10-PCS; principal; 2018-10-11 08:30)
PROC: B246ZZ4 Ultrasonography of Right and Left Heart, Transesophageal (ICD-10-PCS; 2018-10-16)
DX: I08.1 Rheumatic disorders of both mitral and tricuspid valves (principal); D62 Acute posthemorrhagic anemia; I27.20 Pulmonary hypertension, unspecified; R11.0 Nausea; R00.1 Bradycardia, unspecified; E78.5 Hyperlipidemia, unspecified; Z87.891 Personal history of nicotine dependence
CPT/HCPCS: 82435-PO; 82565-PO; 82947-PO; 83605-PO; 84132-PO; 84295-PO; 84520-PO; 85014-PO; 97116-GP; 97161-GP; 97166-GO; 97530-GO; 97530-GP; 97535-GO; C1769; J0153; J0282; J0690; J1100; J1265; J1644; J1815; J1885; J2001; J2150; J2250; J2260; J2270; J2370; J2405; J2704; J2720; J2765; J2930; J3010; J3475; J3480; P9041; Q9967

== ENCOUNTER → 2018-10-27 | Outpatient (CLI) | payer OTHER | LOC: FIMAGING 09:34 → EDSTATUS 09:35 | PROVIDERS: ATTEND Thoracic Surgery (Cardiothoracic Vascular Surgery) | DX: J98.11 Atelectasis (principal); Z95.2 Presence of prosthetic heart valve; Z98.890 Other specified postprocedural states ==